=== PATIENT | male | born 1950 | race Caucasian/White ===

== ENCOUNTER → 2016-11-16 | Outpatient (CLI) | payer MEDICARE ==
[~2016-11-16] MED LIST: ASPI325T PO; TAB-TAB PO; TESTIM TOP
[2016-11-16 08:04] LABS: HEMATOCRIT 43.5 % (39.0-51.0); MEAN CELL VOLUME 93.6 FL (80.0-100.0); MEAN CORPUSCULAR HEMOGLOBIN 32.3 PG (27.0-34.0); MEAN CORPUSCULAR HGB CONC 34.6 % (32.0-36.0); PLATELET COUNT 216 TH/MM3 (150-450); RED BLOOD COUNT 4.65 MIL/MM3 (4.50-5.90); RED CELL DISTRIBUTION WIDTH 12.9 % (11.6-17.2); REVIEW FLAG FINAL; WHITE BLOOD COUNT 4.5 TH/MM3 (4.0-11.0)
[2016-11-16 08:29] LABS: ANION GAP 10 MEQ/L (5-15); AST (GOT) 35 U/L (15-37); BICARBONATE 25.6 MEQ/L (21.0-32.0); BLOOD UREA NITROGEN 17 MG/DL (7-18); CHLORIDE 100 MEQ/L (98-107); GLOMERULAR FILTRATION RATE 75 ML/MIN (>89); GLUCOSE,FASTING 87 MG/DL (74-99); POTASSIUM 4.4 MEQ/L (3.5-5.1); SODIUM (NA) 136 MEQ/L (136-145)
[2016-11-16 08:39] LABS: ALKALINE PHOSPHATASE 63 U/L (45-117); ALT (GPT) 76 U/L (12-78); HDL CHOLESTEROL 31.9 MG/DL (40.0-60.0); LDL CHOLESTEROL 221 MG/DL (0-99); TOTAL BILIRUBIN ADULT 1.1 MG/DL (0.2-1.0)
== END ==
LOC: CLAB 07:27
PROVIDERS: ATTEND Family Medicine
DX: K76.0 Fatty (change of) liver, not elsewhere classified (principal); E78.5 Hyperlipidemia, unspecified; Z12.5 Encounter for screening for malignant neoplasm of prostate
CPT/HCPCS: 36415; 80053; 80061; 84443; 85027; G0103

== ENCOUNTER → 2017-07-15 | Outpatient (CLI) | payer MEDICARE ==
[~2017-07-15] MED LIST changes: +ASPI325T33 PO; +FISH100020 PO; +HYDR-3516 PO; +IBUP-232 PO; +LISI10TA3 PO; +MULT1LIQ9 PO; +SAW500CA PO; +TEST1GEL5 TOPICAL
[2017-07-15 10:58] LABS: ALBUMIN 4.2 GM/DL (3.4-5.0); AST (GOT) 93 U/L (15-37); BICARBONATE 27.3 MEQ/L (21.0-32.0); BLOOD UREA NITROGEN 19 MG/DL (7-18); CALCIUM 9.2 MG/DL (8.5-10.1); CHLORIDE 99 MEQ/L (98-107); CREATININE 0.98 MG/DL (0.60-1.30); GLOMERULAR FILTRATION RATE 76 ML/MIN (>89); GLUCOSE,FASTING 96 MG/DL (74-99); SODIUM (NA) 133 MEQ/L (136-145)
[2017-07-15 10:59] LABS: ALT (GPT) 150 U/L (12-78); CHOLESTEROL 270 MG/DL (120-200); TRIGLYCERIDES 125 MG/DL (42-150)
[2017-07-15 11:08] LABS: ALKALINE PHOSPHATASE 79 U/L (45-117); CHOLESTEROL/ HDL RATIO 6.92 RATIO; LDL CHOLESTEROL 206 MG/DL (0-99); TOTAL BILIRUBIN ADULT 1.1 MG/DL (0.2-1.0); TOTAL PROTEIN 7.8 GM/DL (6.4-8.2)
--- NOTE | 2017-07-17 09:00 | EKG ---
Date Performed: 07/15/2017 Time Performed: 09:49:21 PTAGE: 66 years EKG: Sinus rhythm Compared to prior tracing no significant change NORMAL ECG PREVIOUS TRACING : 12/20/2012 @ 1457 DOCTOR: Zbigniew Lund Interpretating Date/Time 07/17/2017 08:59:45
== END ==
LOC: EDBD 09:08 → CLAB 09:08
PROVIDERS: ATTEND Family Medicine
DX: E78.5 Hyperlipidemia, unspecified (principal); K76.0 Fatty (change of) liver, not elsewhere classified; Z01.810 Encounter for preprocedural cardiovascular examination; Z01.812 Encounter for preprocedural laboratory examination; M17.12 Unilateral primary osteoarthritis, left knee; M79.609 Pain in unspecified limb; I10 Essential (primary) hypertension
CPT/HCPCS: 36415; 80053; 80061; 81001; 84443; 85027; 85610; 85730; 93005

== ENCOUNTER → 2017-07-15 | Outpatient (CLI) | payer MEDICARE ==
[2017-07-15 10:27] LABS: HEMOGLOBIN 15.1 GM/DL (13.0-17.0); MEAN CELL VOLUME 94.1 FL (80.0-100.0); MEAN CORPUSCULAR HEMOGLOBIN 32.3 PG (27.0-34.0); MEAN CORPUSCULAR HGB CONC 34.4 % (32.0-36.0); MEAN PLATELET VOLUME 7.9 FL (7.0-11.0); PLATELET COUNT 215 TH/MM3 (150-450); RED BLOOD COUNT 4.67 MIL/MM3 (4.50-5.90); RED CELL DISTRIBUTION WIDTH 13.4 % (11.6-17.2); WHITE BLOOD COUNT 5.2 TH/MM3 (4.0-11.0)
[2017-07-15 10:39] LABS: PROTHROMBIN TIME - PATIENT 10.9 SEC (9.8-11.6)
[2017-07-15 11:27] LABS: BILIRUBIN, URINE NEG (NEG); BLOOD, URINE NEG (NEG); GLUCOSE,URINE NEG (NEG); KETONE, URINE 10 mg/dL (NEG); MUCUS URINE FEW /lpf (OCC); NITRITE,URINE NEG (NEG); PH, URINE 5.5 (5.0-8.5); URINE COLOR YELLOW (YELLW/STRAW); URINE LEUKOCYTE ESTERASE NEG (NEG)
== END ==
LOC: EDBD → CPRE 09:01
PROVIDERS: ATTEND Orthopaedic Surgery
DX: Z01.810 Encounter for preprocedural cardiovascular examination (principal); Z01.812 Encounter for preprocedural laboratory examination; M17.12 Unilateral primary osteoarthritis, left knee; M79.609 Pain in unspecified limb; I10 Essential (primary) hypertension
CPT/HCPCS: 36415; 81001; 85027; 85610; 85730

== ENCOUNTER 2017-07-26 06:04 | Inpatient (IN) | payer MEDICARE ==
[~2017-07-26] VITALS: Ht 185.4 cm; Wt 131.6 kg
[~2017-07-26 06:04] MED LIST changes: -ASPI325T PO; -TAB-TAB PO; -TESTIM TOP
[2017-07-26] MEDS ORDERED: SODIUM CHLORID 0.9% 500 ML IV PRN (06:45)
[2017-07-26] MEDS ORDERED: POVIDONE IODINE 5% (ANTISEPSIS KIT) 4 APPLICATIONS EACH NARE PRN (06:45)
[2017-07-26] MEDS ORDERED: CHLORHEXIDINE GLUCONATE 4% SOLN 120 ML BTL TOPICAL SCH (06:45)
[2017-07-26] MEDS ORDERED: CHLORHEXIDINE GLUCONATE 2 % 1 PACK (2 CLOTHS) TOPICAL PRN (06:45)
[2017-07-26] MEDS ORDERED: METOPROLOL TARTRATE 25 MG TAB PO PRN (06:45)
[2017-07-26] MEDS ORDERED: LACTATED RINGER'S 1000 ML IV PRN (06:45)
[2017-07-26] MEDS ORDERED: ceFAZolin 2 GM PREMIX 50 ML IV SCH (06:45)
[2017-07-26] MEDS ORDERED: ACETAMINOPHEN 1000 MG/100 ML 100 ML IV ONE (08:05)
[2017-07-26] MEDS ORDERED: FAMOTIDINE 20 MG/2 ML VIAL ONE (08:05)
[2017-07-26] MEDS ORDERED: BUPIVACAINE LIPOSOME PF 1.3% 20 ML VIAL ONE (08:07)
[2017-07-26] MEDS ORDERED: EXPAREL PERI-ARTICULAR INJECTION (TOTAL VOL. 100 ML) P-ARTICULR SCH ×2 (08:30)
[2017-07-26] MEDS: SODIUM CHLORIDE 0.9% IV SCH ×2 (10:11→10:12)
[2017-07-26] MEDS: TRANEXAMIC ACID IV SCH ×2 (10:11→10:12)
--- NOTE | 2017-07-26 11:02 | HHI.PR ---
Immediate Post Op Note Procedure Date: Jul 26, 2017 Pre Op Diagnosis: (1) Primary osteoarthritis of left knee Post Op Diagnosis: (1) Primary osteoarthritis of left knee Surgeon: Aldo Roger MD Mud Jack Nozzle Worker(s): YADIRA Braga Procedure: Left Total Knee Arthroplasty with Jesenai Triathlon Prosthesis, Uncemented Findings: OA Complications: None Specimen(s) removed: None Estimated blood loss: 150 ml Anesthesia: General, Regional Block (Adductor canal), Local (Exparel) Drains: Hemovac (2) IVF Tourniquet time (min at mmHg) 0 Patient to: PACU Patient Condition: Good Implant/Devices: SEE IMPLANT LOG (if applicable) Date/Time of Procedure: SEE SURGICAL CARE RECORD Galina Roger MD (Charles) Jul 26, 2017 11:02
[2017-07-26] MEDS ORDERED: HYDR-3580 PO (11:11)
[2017-07-26] MEDS ORDERED: ONDANSETRON HCL 4 MG/2 ML VIAL IVP PRN (11:15)
[2017-07-26] MEDS ORDERED: ZOLPIDEM TARTRATE 5 MG TAB PO PRN (11:15)
[2017-07-26] MEDS ORDERED: TRANEXAMIC ACID INJ 0 MG in SODIUM CHLORIDE 0.9% INJ 100 ML IV SCH (11:15)
[2017-07-26] MEDS ORDERED: SODIUM CHLORIDE 0.9% FLUSH 5 ML FLUSH IVF PRN (11:15)
[2017-07-26] MEDS ORDERED: MORPHINE SULFATE 4 MG/ML INJ IV PUSH PRN (11:15)
[2017-07-26] MEDS ORDERED: Post-op Orders (for Pharmacy) MISC XX ONE (11:15)
--- NOTE | 2017-07-26 11:15 | HHI.FF ---
Face to Face Verification Diagnosis: (1) Status post total left knee replacement Physical Therapy Gait training Knee: Total knee, Protocol: Left, Gait training, Full weight bearing Left LE Weight Bearing: WB as tolerated Left LE Range of Motion: Active ROM (AROM, AAROM, PROM. ROM goal is 0 to 135 degrees. ROM in the OR was 0 to 145 degrees.) Nursing Nursing: Dressing changes Dressing Changes: Daily dressing change, Coverderm/Primapore Additional Instructions Dressing changes start on postop day 7. Remove steristrips on postop day 14. I have seen patient Dereck Sanches on 07/26/17. My clinical findings support the need for the requested home health care services because: Ltd mobility - disease progression Limited ability to care for self High risk of falls I certify that my clinical findings support that this patient is homebound because: Post-op weakness Unsteady gait/balance Unsafe to leave home unassisted Galina Roger MD (Charles) Jul 26, 2017 11:15
[2017-07-26] MEDS ORDERED: DO NOT ADM ANY ANTICOAGULANT DRUGS PRN (11:16)
[2017-07-26] MEDS: LACTATED RINGER'S 1000 ML INJ 1,000 ML IV SCH ×2 (11:20→23:32)
[2017-07-26] MEDS ORDERED: SODIUM CHLORIDE 0.9% IV SCH (11:30)
[2017-07-26] MEDS ORDERED: TRANEXAMIC ACID IV SCH (11:30)
[2017-07-26] MEDS ORDERED: ROPIVACAINE 0.5% PF INJ 30 ML VIAL ONE (11:38)
--- NOTE | 2017-07-26 11:53 | RADRPT ---
EXAM DATE/TIME: 07/26/2017 11:37 [place] COMPARISON: No previous studies available for comparison. INDICATIONS : Post op left knee MEDICAL HISTORY : None. SURGICAL HISTORY : None. ENCOUNTER: Initial ACUITY: 1 day PAIN SCORE: 0/10 LOCATION: Left knee FINDINGS: AP and lateral views of the left knee demonstrate changes consistent with recent total knee arthropla sty with metallic hardware in place in the distal femur and proximal tibia. There is a metallic greenberg lar component. There is soft tissue gas present, as expected. A surgical drain is in place. CONCLUSION: Expected findings are present following left total knee arthroplasty. Eric Scanlon MD on July 26, 2017 at 11:50 Board Certified Radiologist. This report was verified electronically.
[2017-07-26] MEDS ORDERED: LIDOCAINE HCL 1% PF 5 ML AMPULE OTHER ONE (12:00)
[2017-07-26] MEDS ORDERED: MIDAZOLAM HCL 2 MG/2 ML VIAL IV ONE (12:00)
[2017-07-26] MEDS ORDERED: ePHEDrine/NS 25 MG/5 ML SYR IV ONE (12:00)
[2017-07-26] MEDS ORDERED: GLYCOPYRROLATE 1 MG/5 ML SYRINGE IV PUSH ONE (12:00)
[2017-07-26] MEDS ORDERED: *morphine SULFATE 8 MG/ML PERIprocedure ONLY ONE (12:00)
[2017-07-26] MEDS ORDERED: PROPOFOL 200 MG/20 ML AMP IV ONE (12:00)
[2017-07-26] MEDS ORDERED: ROCURONIUM INJ 50 MG/5 ML SYRINGE IV PUSH ONE (12:00)
[2017-07-26] MEDS ORDERED: ONDANSETRON HCL 4 MG/2 ML VIAL IV PUSH ONE (12:00)
[2017-07-26] MEDS ORDERED: NEOSTIGMINE 3 MG/3 ML SYR IV ONE (12:00)
[2017-07-26] MEDS ORDERED: DEXAMETHASONE SOD PHOS 4 MG/ML VIAL IV ONE (12:00)
--- NOTE | 2017-07-26 12:05 | MP ---
cc: Kasey HARMAN. DATE OF SURGERY 07/26/2017 PREOPERATIVE DIAGNOSIS Primary osteoarthritis left knee. POSTOPERATIVE DIAGNOSIS Primary osteoarthritis left knee. OPERATIVE PERFORMED Left total knee arthroplasty with Angela Triathlon prosthesis (uncemented). SURGEON Jluis Harman MD COMBINATION PRESSER Michael Sanchez, YADIRA ANESTHESIA General by LMA with supplemental adductor canal block and local. INDICATIONS AND FINDINGS This 66-year-old man has had about a one-year history of progressively worsening left knee pain. His ambulation tolerance is now only from car to office or store because of the pain. He uses a cane on occasion or leans on a cart when shopping. He complains of medial pain and mechanical pain including catching and popping. He has difficulty ascending and descending stairs. Treatment has included anti-inflammatory agents, analgesics and intraarticular steroids, viscous supplementation and ambulatory aids. Physical findings showed medial laxity with tenderness in the medial compartment especially and crepitation on motion. X-rays show significant arthritis in the knee with loss of articular cartilage to [id number] in the medial compartment with osteophytes and eburnation. Operative findings were consistent with the radiographic findings with there being loss of articular cartilage to bone on bone in the medial compartment and also patellofemoral arthrosis. Osteophytes are noted. There is eburnation. PROSTHESIS USED Angela Triathlon prosthesis with the femur being a size 6, left cruciate-retaining porous coated. The tibia is a tritanium baseplate size 6, with an 11-mm cruciate-retaining spacer of X3 polyethylene. The patella was a tritanium backed asymmetric patella size 40 mm. PROCEDURE The patient was brought to the operating room and a general anesthetic was administered. He was placed in a supine position on the operating table with a bolster under the right hip. The knee was then prepped with alcohol, Hibiclens and ChloraPrep and draped in the usual manner with the knee draped free. An appropriate time-out procedure was carried out. Local anesthesia was administered into the incision site with Exparel prior to making the incision. The incision was then made from three fingerbreadths above the superior medial pole of the patella down to the tibial tubercle on the medial side. The incision was deepened through subcutaneous tissues to the retinacular structures which were exposed medially and laterally. Medial retinacular incision was made from the superior medial pole of the patella down to the tibial tubercle and up into the quadriceps tendon splitting it longitudinally in the medial one-third. The patella was reflected. The infrapatellar fat pad was debulked. The posterior side of the patella was excised with the oscillating saw taking care to prevent injury to ligamentous and tendinous structures. The patella protector was applied. The patella was dropped into the lateral gutter. Medial and lateral dissection was carried out. Medial and lateral meniscectomies were initiated. The anterior cruciate ligament was excised. Distal femoral drill hole and proximal tibial drill holes were then made for intramedullary referencing guides. The distal femoral cutting guide and jig was assembled for a 5-degree, 8-mm cut. The cutting block was stabilized with pins. The jig was removed. The distal femoral cut was completed with the oscillating saw. The sizing guide was then positioned and pinned in place. This was done according to Whitesides line and the epicondylar axis. The size was determined to be a size 6. The 4-in-1 cutting block was then positioned in place after removal of the sizing guide. Anterior and posterior cuts were made followed by posterior and anterior chamfer cuts. The cutting block was removed. Osteophytes were trimmed. Attention was directed to the tibia. Medial and lateral meniscectomies were completed. The proximal tibial cutting guide and jig were positioned in placed and stabilized with pins for rotation. The depth of cut was verified with the stylus off the lateral side. The depth of cut was checked with the spacer block. The proximal tibial was then completed with the oscillating saw taking care to prevent injury to ligamentous and neurovascular structures. After the proximal tibia had been removed, the remainder of the meniscectomies was completed. The fenestration in the distal femur was plugged with a bone plug. The tibial fenestration was plugged with a bone plug. Osteophytes were trimmed from the back of the femur. The posterior capsule, medial capsule and lateral capsule were then anesthetized with Exparel capsular injection. The tibial baseplate trial was positioned in place. The spacer was positioned in place. The femoral component was impacted into place and seated appropriately. The knee was then extended. The tibial baseplate was positioned for rotation and translation and was pinned in appropriate position. The patellar drill holes were made followed by placement of the trial patella. The knee was taken through a range of motion which was easily 0 degrees extension to 145 degrees of flexion. The stability was excellent. The femoral drill holes were made through the femur. The femoral and patellar trials were removed. The tibial spacer was removed. The tibial punch was impacted through its guide and then removed. The tibial baseplate trial was removed. The drill guide was positioned and drill holes made. The tibial baseplate was then impacted into place and seated appropriately after cleaning the proximal tibia with pulse lavage. A spacer was then inserted and seated as well. The femoral component was then impacted into place after cleaning the cut ends of bone with pulse lavage. The same was done with the patella which was held with the patella vice. Range of motion was again checked and was 0 degrees extension to 145 degrees of flexion with good stability in flexion and extension. Drains were brought out the superior and lateral aspect of the suprapatellar pouch. The remainder of the Exparel was then injected throughout the knee according to protocol. The wound was then closed in layers using 0 Vicryl interrupted [id number] sutures for the retinacular, capsular and fascial structures, 2-0 Vicryl interrupted simple sutures with buried knots for the subcutaneous tissues and 4-0 Monocryl continuous subcuticular closure for the skin. The wound was then dressed with Steri-Strips followed by dry dressing (silver impregnated) Sof-Rol, cooling pad and Jose bandage from the base of the toes to midthigh. The patient was transferred from the operating room to the recovery room in satisfactory condition having tolerated the procedure well. COUNTS Correct. SPECIMENS None. ESTIMATED BLOOD LOSS 150 mL. MD JACKIE So/DANIEL /11:22 AM /11:34 AM
[2017-07-26 12:30] VITALS: BP 116/71; PULSE 78; RESP 18; TEMP 96.2; O2SAT 97
[2017-07-26 14:39] VITALS: O2SAT 97
[2017-07-26] MEDS: KETOROLAC TROMETHAMINE 30 MG/ML (IVP) VIAL IVP SCH ×2 (15:24→20:32)
[2017-07-26 16:00] VITALS: BP 97/55; PULSE 81; RESP 18; TEMP 96.5; O2SAT 96
--- NOTE | 2017-07-26 17:13 | PD.CONS ---
[facility] By [facility]. Roger Reason for Consult Assist with medical management Primary Care Physician Suad Goldman MD Diagnoses: (1) Status post total left knee replacement (2) Primary osteoarthritis of left knee History of Present Illness Patient is a 66-year-old male with primary medical history of osteoarthritis, HTN who came into the hospital for elective surgery. Patient is status post left total knee arthroplasty done by Dr. Roger. States he is doing well. at the bedside. Patient states that he is able to ambulate in the hallway with assistance of physical therapy and has been started on the CPM machine since 4:00 in the afternoon. Reports he hasn't voided since this morning. States he has no discomfort or dysuria. Denies chest pain, palpitations, headaches, dizziness. Denies shortness of breath or dyspnea. Denies abdominal pain, nausea, vomiting, constipation, diarrhea. States he's been tolerating his diet. Has been hydrating well. Review of Systems Except as stated in HPI: all other systems reviewed are Neg Past Family Social History Allergies: Coded Allergies: No Known Allergies (Verified Allergy, Unknown, 07/26/17) Past Medical History HTN Past Surgical History Vasectomy 40 years ago Left knee arthroscopy 6 years ago Reported Medications Reported Meds & Active Scripts Active Hydrocodone-Acetamin 7.5-325 (Hydrocodone/Acetaminophen) 7.5 Mg-325 Mg Tablet 1 Tab PO Q4H PRN Reported Testim Topical (Testosterone) 50 Mg/5 Gm Gel 50 Mg TOPICAL DAILY [place] Essential Liq (Multiple Vitamin Liq) 1 Liqd 5 Ml PO DAILY Hydrocodone-Acetaminophen 5-325 mg Tab 1 Tab PO Q6H PRN Ibuprofen 600 Mg Tab 600 Mg PO DAILY Fish Oil 1000 mg (Furlong-3 Fatty Acids) 300 Mg-1,000 Mg Cap Cap PO DAILY Aspirin EC (Aspirin) 325 Mg Tabdr 325 Mg PO DAILY Saw [place] 500 Mg Capsule 1 Cap PO DAILY Lisinopril 10 Mg Tab 10 Mg PO DAILY Active Ordered Medications Current Medications Medications (Trade) Dose Ordered Sig/Zuleima Route Start Time Stop Time Status Last Admin (Lopressor) 25 mg LICENSED OPTICAL DISPENSER PRN PO 07/26/17 06:45 07/29/17 06:44 (Betadine 5% Antisepsis Kit) 1 applic LICENSED OPTICAL DISPENSER PRN EACH NARE 07/26/17 06:45 07/29/17 06:44 07/26/17 07:00 (Chlorhexidine 2% Cloth) 3 pack LICENSED OPTICAL DISPENSER PRN TOPICAL 07/26/17 06:45 07/29/17 06:44 07/26/17 06:50 (Hibiclens 4% Top Soln) 1 applic ONCE TOPICAL 07/26/17 06:45 07/29/17 06:44 Lactated Ringer's 1,000 ml @ 80 mls/hr [id number] IV 07/26/17 11:02 07/26/17 11:20 (NS Flush) 2 ml UNSCH PRN IVF 07/26/17 11:15 (NS Flush) 2 ml BID IVF 07/26/17 21:00 Cefazolin Sodium 1000 mg/Sodium Chloride 100 ml @ 200 mls/hr Q6H IV 07/26/17 16:00 07/27/17 04:29 07/26/17 15:22 (Morphine Inj) 4 mg Q3H PRN IV PUSH 07/26/17 11:15 (Olivia 7.5-325 Mg) 1 tab Q4H PRN PO 07/26/17 11:15 (Olivia 7.5-325 Mg) 2 tab Q4H PRN PO 07/26/17 11:15 (Toradol Inj) 15 mg Q6H IVP 07/26/17 14:00 07/28/17 08:01 07/26/17 15:24 (Zofran Inj) 4 mg Q6H PRN IVP 07/26/17 11:15 (Colace) 100 mg BID PO 07/27/17 21:00 (Ambien) 5 mg HS PRN PO 07/26/17 11:15 (Milk Of Magnesia Liq) 30 ml DAILY PRN PO 07/26/17 11:15 (Ecotrin Ec) 325 mg DAILY PO 07/27/17 09:00 (Prinivil) 10 mg DAILY PO 07/27/17 09:00 Miscellaneous Information ALL NURSING DEPARTME... UNSCH PRN .XX 07/26/17 11:16 07/27/17 11:15 Patient Own Medication POM: TESTOSTERONE(TESTIM) TOP GEL-- APPLY... DAILY TOPICAL 07/27/17 09:00 Future Hold Patient Own Medication PT OWN MED: DEKAS MARÍA... DAILY PO 07/27/17 09:00 Family History Father of cardiomyopathy at the age of 95 Mother of cancer at the age of 96 Social History Lives home with family. Social alcohol use Denies tobacco use, never smoker Denies illicit drug use Physical Exam Vital Signs Vital Signs Date Time Temp Pulse Resp B/P (MAP) Pulse Ox O2 Delivery O2 Flow Rate FiO2 07/26/17 14:39 97 Nasal Cannula 3.00 07/26/17 12:30 96.2 78 18 116/71 (86) 97 07/26/17 12:15 74 21 118/63 (81) 97 Nasal Cannula 3 07/26/17 12:00 68 22 121/60 (80) 100 Nasal Cannula 3 07/26/17 11:45 69 21 124/60 (81) 99 Nasal Cannula 3 07/26/17 11:35 67 18 123/59 (80) 98 Nasal Cannula 3 07/26/17 11:19 97.4 73 18 135/70 (91) 97 Nasal Cannula 3 07/26/17 07:04 99.2 80 20 135/73 (93) 98 Physical Exam GENERAL: This is a well-nourished, well-developed patient, in no apparent distress. SKIN: Warm and dry. HEAD: Normocephalic. No temporal or scalp tenderness. EYES: Pupils equal round and reactive. Extraocular motions intact. No scleral icterus. No injection or drainage. ENT: Nose without bleeding. Throat without erythema. Uvula midline. Airway patent. NECK: Trachea midline. CARDIOVASCULAR: Regular rate and rhythm without murmurs, gallops, or rubs. RESPIRATORY: Clear to auscultation. Breath sounds equal bilaterally. No wheezes , rales, or rhonchi. GASTROINTESTINAL: Abdomen soft, non-tender, nondistended. No guarding. Bowel sounds active 4. MUSCULOSKELETAL: Extremities without clubbing, cyanosis. Trace LLE edema. LLE jamal wrap in place. Hemovac in place draining sanguinous moderate amount. Bilateral pulses palpable. NEUROLOGICAL: Awake and alert. Cranial nerves II through XII intact. Motor and sensory grossly within normal limits. Normal speech. Imaging Last Impressions Knee X-Ray 07/26/17 1102 Signed Impressions: Service Date/Time: Wednesday, July 26, 2017 11:37 - CONCLUSION: Expected findings are present following left total knee arthroplasty. Eric Scanlon MD Assessment and Plan Problem List: (1) HTN (hypertension) ICD Code: I10 - Essential (primary) hypertension Status: Chronic (2) Status post total left knee replacement ICD Code: Z96.652 - Presence of left artificial knee joint Status: Acute (3) Primary osteoarthritis of left knee ICD Code: M17.12 - Unilateral primary osteoarthritis, left knee Status: Acute Assessment and Plan Patient is a 66-year-old male with primary medical history of osteoarthritis, HTN who came into the hospital for elective surgery. Osteoarthritis of the knee Status post left total knee arthroplasty - Followed by primary team Dr. Roger - Pain management [place], tolerating - PT eval and treat - Hemovac management, moderate amount sanguinous strain, check H&H tomorrow Urinary retention, acute - Possibly related to anesthesia use - Notified nursing to assist patient - Straight catheter if needed - Discuss with patient and HTN, chronic - Continue lisinopril daily, hold parameters if necessary - patient's latest blood pressure 97/55 possibly secondary to pain medication - patient was given 8 mg of morphine - Monitor BP trend DVT prop early ambulation Code Status Full code Discussed Condition With Patient, , nursing, Wilma Carpenter Jul 26, 2017 17:13
[2017-07-26 20:21] VITALS: O2SAT 96
[2017-07-26 20:25] VITALS: BP 110/70; PULSE 80; RESP 16; TEMP 98.1; O2SAT 97
[2017-07-26] MEDS ORDERED: ASPIRIN EC 81 MG TABEC PO SCH (21:00)
[2017-07-26] MEDS: SODIUM CHLORIDE 0.9% FLUSH 5 ML FLUSH IVF SCH (21:03)
[2017-07-27 04:30] VITALS: BP 111/69; PULSE 69; RESP 16; TEMP 96.8; O2SAT 99
[2017-07-27] MEDS: KETOROLAC TROMETHAMINE 30 MG/ML (IVP) VIAL IVP SCH ×4 (04:34→20:20)
[2017-07-27] MEDS: ACETAMINOPHEN/HYDROcodone 325 MG/7.5 MG TAB PO PRN ×5 (06:20→22:51)
--- NOTE | 2017-07-27 07:46 | PD.ORT.PN ---
Subjective Post Op Day #: 1 Subjective Remarks He is doing well. There is almost no pain. Range of Motion 0 to 115 degrees. Distance Walked 200 feet. Objective Vitals Vital Signs Date Time Temp Pulse Resp B/P (MAP) Pulse Ox O2 Delivery O2 Flow Rate FiO2 07/27/17 04:30 96.8 69 16 111/69 (83) 99 07/26/17 20:25 98.1 80 16 110/70 (83) 97 07/26/17 20:21 96 21 07/26/17 16:00 96.5 81 18 97/55 (69) 96 07/26/17 14:39 97 Nasal Cannula 3.00 07/26/17 12:30 96.2 78 18 116/71 (86) 97 07/26/17 12:15 74 21 118/63 (81) 97 Nasal Cannula 3 07/26/17 12:05 16 07/26/17 12:00 68 22 121/60 (80) 100 Nasal Cannula 3 07/26/17 11:45 69 21 124/60 (81) 99 Nasal Cannula 3 07/26/17 11:35 67 18 123/59 (80) 98 Nasal Cannula 3 07/26/17 11:19 97.4 73 18 135/70 (91) 97 Nasal Cannula 3 I/O 07/26/17 07/26/17 07/26/17 07/27/17 07/27/17 07/27/17 07:00 15:00 23:00 07:00 15:00 23:00 Intake Total 1980 ml 360 ml 240 ml Output Total 150 ml 230 ml 380 ml Balance 1830 ml 130 ml -140 ml Intake Oral 480 ml 360 ml 240 ml IV Total 1500 ml Output Urine Total 200 ml Drainage Total 230 ml 180 ml Estimated Blood Loss 150 ml # Voids 1 # Bowel Movements 0 0 Imaging Last 24 hours Impressions Knee X-Ray 07/26/17 1102 Signed Impressions: Service Date/Time: Wednesday, July 26, 2017 11:37 - CONCLUSION: Expected findings are present following left total knee arthroplasty. Eric Scanlon MD Objective Remarks He is resting comfortably, supine in bed in the [facility]. The dressing is dry and intact. The neurovascular status is intact. Assessment & Plan Ortho Post Op Day #: 1 Problem List: (1) Status post total left knee replacement ICD Codes: Z96.652 - Presence of left artificial knee joint Status: Acute Plan: Continue postop care and PT. Assessment and Plan Condition: Good. Orthopaedically stable. DVT prophylaxis: TEDs, ASA, sequentials. Discharge plans: Home with [facility]. Has appointment. Rx [place] 7.5/325 Galina Roger MD (Charles) Jul 27, 2017 07:46
[2017-07-27 08:00] VITALS: BP 104/62; PULSE 73; RESP 17; TEMP 96.5; O2SAT 97
[2017-07-27 08:50] LABS: HEMATOCRIT 29.8 % (39.0-51.0); REVIEW FLAG FINAL
[2017-07-27] MEDS ORDERED: [UNRECOGNIZED DRUG - OTHER] TOPICAL SCH (09:00)
[2017-07-27] MEDS: SODIUM CHLORIDE 0.9% FLUSH 5 ML FLUSH IVF SCH ×2 (09:00→20:20)
[2017-07-27] MEDS ORDERED: SAW PALMETTO PO SCH (09:00)
[2017-07-27] MEDS ORDERED: MULTIPLE VITAMIN PO SCH (09:00)
[2017-07-27] MEDS ORDERED: TESTOSTERONE 50 MG TOPICAL SCH (09:00)
[2017-07-27] MEDS: [UNRECOGNIZED DRUG - OTHER] PO SCH (09:00)
[2017-07-27] MEDS: LISINOPRIL 10 MG TAB PO SCH (10:11)
[2017-07-27] MEDS: ASPIRIN EC 325 MG TABEC PO SCH (10:11)
[2017-07-27 12:00] VITALS: BP 102/56; PULSE 74; RESP 16; TEMP 96.7; O2SAT 100
[2017-07-27] MEDS: LACTATED RINGER'S 1000 ML INJ 1,000 ML IV SCH ×2 (12:02→20:20)
--- NOTE | 2017-07-27 15:43 | HHI.PR ---
Subjective Remarks Follow-up urinary retention, hypertension. Patient states that he has no pain. He is planning for discharge home tomorrow. Denies chest pain, dyspnea. Urinary retention seems to have resolved. Objective Vitals Vital Signs Date Time Temp Pulse Resp B/P (MAP) Pulse Ox O2 Delivery O2 Flow Rate FiO2 07/27/17 12:00 21 07/27/17 12:00 96.7 74 16 102/56 (71) 100 07/27/17 08:00 96.5 73 17 104/62 (76) 97 07/27/17 04:30 96.8 69 16 111/69 (83) 99 07/26/17 20:25 98.1 80 16 110/70 (83) 97 07/26/17 20:21 96 21 07/26/17 16:00 96.5 81 18 97/55 (69) 96 I/O 07/26/17 07/26/17 07/26/17 07/27/17 07/27/17 07/27/17 07:00 15:00 23:00 07:00 15:00 23:00 Intake Total 1980 ml 360 ml 240 ml Output Total 150 ml 230 ml 380 ml 225 ml Balance 1830 ml 130 ml -140 ml -225 ml Intake Oral 480 ml 360 ml 240 ml IV Total 1500 ml Output Urine Total 200 ml Drainage Total 230 ml 180 ml 225 ml Estimated Blood Loss 150 ml # Voids 1 # Bowel Movements 0 0 Result Diagram: 07/27/17 0806 Imaging Last Impressions Knee X-Ray 07/26/17 1102 Signed Impressions: Service Date/Time: Wednesday, July 26, 2017 11:37 - CONCLUSION: Expected findings are present following left total knee arthroplasty. Eric Scanlon MD Objective Remarks General: No acute distress. Ambulating with a walker. Heart: Regular rate and rhythm. No murmur. Lungs: Clear to auscultation bilaterally. No wheezes, rales, or rhonchi. Breathing is nonlabored. Abdomen: Soft, nontender, nondistended. Extremities: No lower extremity edema. Psych: Alert and oriented. Procedures 07/26/17 left total knee arthroplasty Urinary Catheter: No Vascular Central Line Catheter: No A/P Problem List: (1) HTN (hypertension) ICD Code: I10 - Essential (primary) hypertension Status: Chronic (2) Status post total left knee replacement ICD Code: Z96.652 - Presence of left artificial knee joint Status: Acute (3) Primary osteoarthritis of left knee ICD Code: M17.12 - Unilateral primary osteoarthritis, left knee Status: Acute Assessment and Plan 1. Osteoarthritis, left knee: Status post left total knee arthroplasty. Management per orthopedic surgery. Continue physical therapy, bowel regimen. 2. Urinary retention: Likely related to anesthesia. Resolved. 3. Hypertension: Continue lisinopril. Blood pressure was low following surgery, but has remained stable. 4. DVT prophylaxis: Aspirin. ANTHONY Santana. Discharge Planning Per orthopedic surgery. Likely discharge home tomorrow with home health. Luisito Duarte MD Jul 27, 2017 15:43
[2017-07-27 16:00] VITALS: BP 100/64; PULSE 71; RESP 16; TEMP 96.6; O2SAT 96
[2017-07-27] MEDS: DOCUSATE SODIUM 100 MG CAP PO SCH (20:20)
[2017-07-27] MEDS: MAGNESIUM HYDROXIDE SUSP 30 ML CUP PO PRN (20:20)
[2017-07-28] VITALS: BP 102/69; PULSE 69; RESP 19; TEMP 97
[2017-07-28] MEDS: KETOROLAC TROMETHAMINE 30 MG/ML (IVP) VIAL IVP SCH ×2 (01:02→07:59)
[2017-07-28 04:00] VITALS: BP 129/73; PULSE 70; RESP 19; TEMP 96.9; O2SAT 95
[2017-07-28 07:06] LABS: HEMATOCRIT 27.9 % (39.0-51.0); REVIEW FLAG FINAL
--- NOTE | 2017-07-28 07:10 | PD.ORT.PN ---
Subjective Post Op Day #: 2 Subjective Remarks He is doing better today than yesterday. There is not much pain. Range of Motion -5 to 115 degrees. Distance Walked 350 feet. Objective Vitals Vital Signs Date Time Temp Pulse Resp B/P (MAP) Pulse Ox O2 Delivery O2 Flow Rate FiO2 07/28/17 04:00 96.9 70 19 129/73 (91) 95 07/28/17 00:00 97.0 69 19 102/69 (80) 07/27/17 20:01 21 07/27/17 16:00 96.6 71 16 100/64 (76) 96 07/27/17 12:00 21 07/27/17 12:00 96.7 74 16 102/56 (71) 100 07/27/17 08:00 96.5 73 17 104/62 (76) 97 I/O 07/27/17 07/27/17 07/27/17 07/28/17 07/28/17 07/28/17 07:00 15:00 23:00 07:00 15:00 23:00 Intake Total 240 ml 1250 ml Output Total 380 ml 225 ml 835 ml 70 ml Balance -140 ml 1025 ml -835 ml -70 ml Intake Oral 240 ml 1250 ml Output Urine Total 200 ml 625 ml Drainage Total 180 ml 225 ml 210 ml 70 ml # Voids 2 # Bowel Movements 0 0 Result Diagram: 07/28/17 0605 Imaging Last 24 hours Impressions Knee X-Ray 07/26/17 1102 Signed Impressions: Service Date/Time: Wednesday, July 26, 2017 11:37 - CONCLUSION: Expected findings are present following left total knee arthroplasty. Eric Scanlon MD Objective Remarks He is OOB in the chair. The dressing is dry and intact. The neurovascular status is intact. Assessment & Plan Ortho Post Op Day #: 2 Problem List: (1) Status post total left knee replacement ICD Codes: Z96.652 - Presence of left artificial knee joint Status: Acute Plan: Continue postop care and PT. Assessment and Plan Condition: Good. Orthopaedically stable. DVT prophylaxis: TEDs, ASA, sequentials. Discharge plans: Home with [facility]. Has appointment. Rx [place] 7.5/325 Galina Roger MD (Charles) Jul 28, 2017 07:10
[2017-07-28 07:37] LABS: BICARBONATE 27.6 MEQ/L (21.0-32.0); POTASSIUM 4.4 MEQ/L (3.5-5.1)
[2017-07-28] MEDS: DOCUSATE SODIUM 100 MG CAP PO SCH (07:59)
[2017-07-28] MEDS: ASPIRIN EC 325 MG TABEC PO SCH (07:59)
[2017-07-28] MEDS: ACETAMINOPHEN/HYDROcodone 325 MG/7.5 MG TAB PO PRN ×2 (07:59→12:25)
[2017-07-28] MEDS: LISINOPRIL 10 MG TAB PO SCH (07:59)
[2017-07-28 08:00] VITALS: BP_SYST 110; BP_SYST 135; BP_DIAS 59; BP_DIAS 71; PULSE 80; PULSE 98; RESP 18; TEMP 96.7; TEMP 98.7; O2SAT 97; O2SAT 98
[2017-07-28] MEDS: MAGNESIUM HYDROXIDE SUSP 30 ML CUP PO PRN (08:06)
[2017-07-28] MEDS: [UNRECOGNIZED DRUG - OTHER] PO SCH (09:00)
[2017-07-28] MEDS: SODIUM CHLORIDE 0.9% FLUSH 5 ML FLUSH IVF SCH (09:00)
[2017-07-28] MEDS: LACTATED RINGER'S 1000 ML INJ 1,000 ML IV SCH (13:02)
== END 2017-07-28 13:45 | disposition home health service (06) | DRG 470 ==
LOC: EDBD → HSDI 06:04 → N06B 12:29
PROVIDERS: ADMIT Orthopaedic Surgery; ATTEND Orthopaedic Surgery
PROC: 3E0T3BZ Introduction of Anesthetic Agent into Peripheral Nerves and Plexi, Percutaneous Approach (ICD-10-PCS; 2017-07-26)
PROC: 0SRD0JA Replacement of Left Knee Joint with Synthetic Substitute, Uncemented, Open Approach (ICD-10-PCS; principal; 2017-07-26 08:22)
DX: M17.12 Unilateral primary osteoarthritis, left knee (principal); I10 Essential (primary) hypertension; M25.762 Osteophyte, left knee; R33.8 Other retention of urine
CPT/HCPCS: 73560; 80048; 85014; 85018; 86850; 86900; 86901; 94150; C1776; C9290; J0131; J0690; J1100; J1885; J2250; J2270; J2405; J2710; J2795; J3010; J7120

== ENCOUNTER → 2018-01-17 | Outpatient (CLI) | payer MEDICARE ==
[~2018-01-17] MED LIST changes: +HYDR-3580 PO
[2018-01-17 07:23] LABS: AUTOMATED NEUTROPHIL # 2.3 TH/MM3 (1.8-7.7); BASOPHIL % 1.1 % (0.0-2.0); EOSINOPHIL # 0.1 TH/MM3 (0-0.4); HEMATOCRIT 39.8 % (39.0-51.0); HEMOGLOBIN 13.7 GM/DL (13.0-17.0); LYMPH % 30.4 % (9.0-44.0); LYMPHOCYTE # 1.2 TH/MM3 (1.0-4.8); MEAN CELL VOLUME 92.2 FL (80.0-100.0); MEAN CORPUSCULAR HEMOGLOBIN 31.8 PG (27.0-34.0); MEAN CORPUSCULAR HGB CONC 34.5 % (32.0-36.0); MEAN PLATELET VOLUME 7.3 FL (7.0-11.0); MONO % 9.7 % (0.0-8.0); MONOCYTE # 0.4 TH/MM3 (0-0.9); NEUT % 56.8 % (16.0-70.0); PLATELET COUNT 198 TH/MM3 (150-450); RED BLOOD COUNT 4.31 MIL/MM3 (4.50-5.90); RED CELL DISTRIBUTION WIDTH 15.1 % (11.6-17.2); WHITE BLOOD COUNT 4.1 TH/MM3 (4.0-11.0)
[2018-01-17 07:50] LABS: ALBUMIN 3.8 GM/DL (3.4-5.0); AST (GOT) 40 U/L (15-37); BICARBONATE 26.7 MEQ/L (21.0-32.0); BLOOD UREA NITROGEN 15 MG/DL (7-18); CALCIUM 8.8 MG/DL (8.5-10.1); CHLORIDE 103 MEQ/L (98-107); CREATININE 1.03 MG/DL (0.60-1.30); GLOMERULAR FILTRATION RATE 72 ML/MIN (>89); GLUCOSE,FASTING 94 MG/DL (74-99); SODIUM (NA) 139 MEQ/L (136-145)
[2018-01-17 07:51] LABS: ALT (GPT) 24 U/L (12-78); CHOLESTEROL 223 MG/DL (120-200); TRIGLYCERIDES 147 MG/DL (42-150)
[2018-01-17 08:00] LABS: ALKALINE PHOSPHATASE 78 U/L (45-117); CHOLESTEROL/ HDL RATIO 6.21 RATIO; HDL CHOLESTEROL 35.9 MG/DL (40.0-60.0); LDL CHOLESTEROL 158 MG/DL (0-99); TOTAL BILIRUBIN ADULT 0.7 MG/DL (0.2-1.0); TOTAL PROTEIN 7.3 GM/DL (6.4-8.2)
== END ==
LOC: CLAB 06:56
PROVIDERS: ATTEND Family Medicine
DX: E78.5 Hyperlipidemia, unspecified (principal); E29.1 Testicular hypofunction; Z12.5 Encounter for screening for malignant neoplasm of prostate
CPT/HCPCS: 36415; 80053; 80061; 84153; 84443; 85025